=== PATIENT | male | born 1945 | race Caucasian/White ===

== ENCOUNTER 2023-11-08 11:54 | Inpatient (IN) | payer MEDICARE, OTHER, MEDICAID ==
[2023-11-08] MEDS ORDERED: Acetaminophen 325 MG Tab PO PRN (17:52)
[2023-11-08] MEDS ORDERED: Hydrocortisone 2.5% Crm 30 GM Tube TOP PRN (18:32)
[2023-11-08] MEDS ORDERED: Albuterol 0.083% 2.5 MG/3 ML Neb Soln INH PRN (18:32)
[2023-11-08] MEDS ORDERED: Nitroglycerin 0.4 MG Tab.SL SL SCH (18:45)
[2023-11-08] MEDS ORDERED: Glucagon,Human Recombinant 1 MG Vial IM PRN (18:46)
[2023-11-08] MEDS ORDERED: 50% Dextrose in Water 50 ML Syringe IVPUSH PRN (18:46)
[2023-11-08] MEDS: Insulin Lispro 100 Unit/ML 3 ML KwikPen SUBCUT SCH (19:01)
[2023-11-08] MEDS: Acetaminophen/HYDROcodone 325-5 MG Tab PO PRN (19:18)
[2023-11-08] MEDS: Gabapentin 100 MG Cap PO SCH (20:54)
[2023-11-08] MEDS: Furosemide 20 MG Tab PO SCH (20:54)
[2023-11-08] MEDS: Celecoxib 100 MG Cap PO SCH (20:54)
[2023-11-08] MEDS: Montelukast 10 MG Tab PO SCH (20:54)
[2023-11-08] MEDS: Rosuvastatin 10 MG Tab PO SCH (20:54)
[2023-11-08] MEDS: Apixaban 5 MG Tab PO SCH (20:54)
[2023-11-08] MEDS: NORTRIPTYLINE 25 MG PO SCH (20:55)
[2023-11-08] MEDS: Albuterol 8 GM Inhaler INH SCH (22:24)
[2023-11-09] MEDS ORDERED: Scopalamine 1mg/3day Transdermal Patch TRDERM PRN (00:02)
[2023-11-09] MEDS: Pantoprazole 40 MG Tab.CR PO SCH (06:30)
[2023-11-09] MEDS: Levothyroxine 50 MCG Tab PO SCH (06:30)
[2023-11-09] MEDS: Insulin Glargine,Hum.Rec.Anlog 100 UNIT/ML 3 ML Pen SUBCUT SCH (08:32)
[2023-11-09] MEDS: Docusate Sodium 100 MG Cap PO SCH (08:35)
[2023-11-09] MEDS: Finasteride 5 MG Tab PO SCH (08:35)
[2023-11-09] MEDS: ALFUZOSIN HCL 10 MG PO SCH (08:36)
[2023-11-09] MEDS: Ferrous Sulfate 325 MG Tab PO SCH (08:36)
[2023-11-09] MEDS: Aspirin 81 MG Tab.Chew PO SCH (08:36)
[2023-11-09] MEDS: Carvedilol 6.25 MG Tab PO SCH (08:40)
[2023-11-09] MEDS ORDERED: Non-Formulary Medication 1 Each (Fluticasone/Vilanterol [Breo Ellipta 50-25 Mcg Inhaler] 1 INH SCH (09:00)
[2023-11-09] MEDS: Furosemide 20 MG Tab PO SCH (09:44)
[2023-11-09] MEDS: DAPAGLIFLOZIN PROPANEDIOL 10 MG PO SCH (15:53)
[2023-11-09] MEDS: ECHINACEA 400 MG PO SCH (15:53)
[2023-11-09] MEDS: Formoterol/Mometasone 200-5 MCG 8.8 GM Inhaler IH SCH (20:53)
[2023-11-10 08:47] LABS: BASOPHILS ABSOLUTE AUTO 0.05 10^3/uL (0.00-0.10); BASOPHILS PERCENT AUTO 0.7 % (0.0-1.0); EOSINOPHILS ABSOLUTE AUTO 0.25 10^3/uL (0.10-0.30); EOSINOPHILS PERCENT AUTO 3.6 % (1.0-3.0); HEMATOCRIT 31.2 % (40.0-52.0); IMMATURE GRAN ABSOLUTE AUTO 0.02 10^3/uL (0.00-0.50); IMMATURE GRAN PERCENT AUTO 0.3 % (0.0-5.0); LYMPHOCYTES ABSOLUTE AUTO 1.32 10^3/uL (1.00-4.00); LYMPHOCYTES PERCENT AUTO 19.2 % (20.0-40.0); MEAN CORPUSCULAR HGB CONC 32.1 g/dL (32.0-36.0); MEAN CORPUSCULAR VOLUME 93.7 fL (82.0-92.0); MEAN PLATELET VOLUME 9.5 fL (7.4-10.4); MONOCYTES ABSOLUTE AUTO 0.54 10^3/uL (0.10-0.80); MONOCYTES PERCENT AUTO 7.9 % (2.0-8.0); NEUTROPHILS ABSOLUTE AUTO 4.69 10^3/uL (2.50-7.00); NEUTROPHILS PERCENT AUTO 68.3 % (50.0-70.0); PLATELET COUNT,PLT 373 10^3/uL (150-400); RED BLOOD CELL COUNT 3.33 10^6/uL (4.50-6.00); RED CELL DISTRIBUTION WIDTH 14.5 % (11.5-14.5); WHITE BLOOD CELL COUNT,WBC 6.87 10^3/uL (5.00-10.00)
[2023-11-10 09:03] LABS: ANION GAP 11.8 mmol/L (5-15); CALCIUM 8.3 mg/dL (8.7-10.3); CREATININE 0.7 mg/dL (0.51-1.17); EST CRCL DRUG DOSING (CG) 85.5 mL/min; MAGNESIUM 1.9 mg/dL (1.8-2.4); POTASSIUM,K 3.8 mmol/L (3.5-5.1)
[2023-11-10] MEDS: Fluconazole 100 MG Tab PO ONE (16:35)
[2023-11-10] MEDS: Nystatin Crm 15 GM Tube TOP SCH (16:35)
[2023-11-10] MEDS ORDERED: Bisacodyl 10 MG Supp RECTAL PRN (19:49)
[2023-11-10] MEDS: Ondansetron 4 MG Tab.DIS PO PRN (20:02)
[2023-11-10] MEDS: Magnesium Hydroxide 400 MG/5 ML Susp 30 ML Cup PO PRN (20:48)
[2023-11-11 06:38] LABS: APPEARANCE,URINE SLIGHTLY CLOUDY (CLEAR); BILIRUBIN,URINE NEGATIVE (NEGATIVE); COLOR,URINE LIGHT YELLOW (YELLOW); GLUCOSE,URINE >=1000 mg/dL (NEGATIVE); KETONES,URINE NEGATIVE (NEGATIVE); LEUKOCYTE ESTERASE,URINE SMALL (NEGATIVE); NITRITE,URINE NEGATIVE (NEGATIVE); OCCULT BLOOD,URINE SMALL (NEGATIVE); PROTEIN,URINE NEGATIVE (NEGATIVE); UROBILINOGEN,URINE 0.2 E.U./dL (0.2-1.0)
[2023-11-11 06:44] LABS: BACTERIA,URINE FEW /HPF (NONE TO FEW); EPITHELIAL CELLS,URINE FEW /LPF; RBC,URINE 0-5 /HPF (0-5)
[2023-11-11 07:28] LABS: ALBUMIN 2.39 g/dL (3.40-5.00); ANION GAP 13.4 mmol/L (5-15); BILIRUBIN TOTAL 0.5 mg/dL (0.2-1.0); CALCIUM 8.3 mg/dL (8.7-10.3); CARBON DIOXIDE,CO2 28.9 mmol/L (21.0-32.0); CREATININE 0.67 mg/dL (0.51-1.17); EST CRCL DRUG DOSING (CG) 89.33 mL/min; POTASSIUM,K 4.3 mmol/L (3.5-5.1); PROTEIN TOTAL,TP 5.4 g/dL (6.4-8.2)
[2023-11-11] MEDS: Bisacodyl 5 MG Tab PO PRN (08:18)
[2023-11-11] MEDS ORDERED: PENTOXIFYLLINE 400 MG PO SCH (10:15)
[2023-11-11] MEDS: Lactulose Soln 10 GM/15 ML 30 ML UD Cup PO PRN (12:11)
[2023-11-11] MEDS: PENTOXIFYLLINE 400 MG PO SCH (12:11)
[2023-11-12] MEDS: Loratadine 10 MG Tab PO PRN (03:05)
[2023-11-12] MEDS: Fluticasone NASAL Spray 16 GM Bottle NASBOTH PRN (16:42)
[2023-11-13 08:06] LABS: BASOPHILS ABSOLUTE AUTO 0.05 10^3/uL (0.00-0.10); BASOPHILS PERCENT AUTO 0.9 % (0.0-1.0); EOSINOPHILS ABSOLUTE AUTO 0.21 10^3/uL (0.10-0.30); EOSINOPHILS PERCENT AUTO 3.7 % (1.0-3.0); HEMATOCRIT 33.9 % (40.0-52.0); HEMOGLOBIN 10.9 g/dL (13.0-17.0); IMMATURE GRAN ABSOLUTE AUTO 0.02 10^3/uL (0.00-0.50); IMMATURE GRAN PERCENT AUTO 0.4 % (0.0-5.0); LYMPHOCYTES ABSOLUTE AUTO 1.33 10^3/uL (1.00-4.00); LYMPHOCYTES PERCENT AUTO 23.7 % (20.0-40.0); MEAN CORPUSCULAR HEMOGLOBIN 30.1 pg (27.0-31.0); MEAN CORPUSCULAR HGB CONC 32.2 g/dL (32.0-36.0); MEAN CORPUSCULAR VOLUME 93.6 fL (82.0-92.0); MEAN PLATELET VOLUME 9.5 fL (7.4-10.4); MONOCYTES ABSOLUTE AUTO 0.47 10^3/uL (0.10-0.80); MONOCYTES PERCENT AUTO 8.4 % (2.0-8.0); NEUTROPHILS ABSOLUTE AUTO 3.53 10^3/uL (2.50-7.00); NEUTROPHILS PERCENT AUTO 62.9 % (50.0-70.0); PLATELET COUNT,PLT 391 10^3/uL (150-400); RED BLOOD CELL COUNT 3.62 10^6/uL (4.50-6.00); RED CELL DISTRIBUTION WIDTH 14.9 % (11.5-14.5); WHITE BLOOD CELL COUNT,WBC 5.61 10^3/uL (5.00-10.00)
[2023-11-13 08:24] LABS: ANION GAP 12.6 mmol/L (5-15); CALCIUM 8.8 mg/dL (8.7-10.3); CARBON DIOXIDE,CO2 26.9 mmol/L (21.0-32.0); CREATININE 0.71 mg/dL (0.51-1.17); EST CRCL DRUG DOSING (CG) 84.3 mL/min; MAGNESIUM 2.5 mg/dL (1.8-2.4); POTASSIUM,K 4.5 mmol/L (3.5-5.1)
[2023-11-13] MEDS: Polyethylene Glycol 3350 Powder 17 GM Packet PO PRN (08:44)
[2023-11-13] MEDS: Nystatin Crm 15 GM Tube TOP SCH (22:07)
[2023-11-14 12:20] LABS: BASOPHILS ABSOLUTE AUTO 0.02 10^3/uL (0.00-0.10); BASOPHILS PERCENT AUTO 0.4 % (0.0-1.0); EOSINOPHILS ABSOLUTE AUTO 0.19 10^3/uL (0.10-0.30); EOSINOPHILS PERCENT AUTO 3.4 % (1.0-3.0); HEMATOCRIT 35.2 % (40.0-52.0); HEMOGLOBIN 11.2 g/dL (13.0-17.0); IMMATURE GRAN ABSOLUTE AUTO 0.02 10^3/uL (0.00-0.50); IMMATURE GRAN PERCENT AUTO 0.4 % (0.0-5.0); LYMPHOCYTES ABSOLUTE AUTO 0.98 10^3/uL (1.00-4.00); LYMPHOCYTES PERCENT AUTO 17.4 % (20.0-40.0); MEAN CORPUSCULAR HGB CONC 31.8 g/dL (32.0-36.0); MEAN CORPUSCULAR VOLUME 94.4 fL (82.0-92.0); MEAN PLATELET VOLUME 9.5 fL (7.4-10.4); MONOCYTES ABSOLUTE AUTO 0.56 10^3/uL (0.10-0.80); NEUTROPHILS ABSOLUTE AUTO 3.85 10^3/uL (2.50-7.00); NEUTROPHILS PERCENT AUTO 68.4 % (50.0-70.0); PLATELET COUNT,PLT 374 10^3/uL (150-400); RED BLOOD CELL COUNT 3.73 10^6/uL (4.50-6.00); WHITE BLOOD CELL COUNT,WBC 5.62 10^3/uL (5.00-10.00)
[2023-11-14 12:35] LABS: ALBUMIN 3.07 g/dL (3.40-5.00); ANION GAP 12.8 mmol/L (5-15); BILIRUBIN TOTAL 0.4 mg/dL (0.2-1.0); CALCIUM 8.9 mg/dL (8.7-10.3); CARBON DIOXIDE,CO2 26.7 mmol/L (21.0-32.0); CREATININE 0.73 mg/dL (0.51-1.17); EST CRCL DRUG DOSING (CG) 81.99 mL/min; MAGNESIUM 2.3 mg/dL (1.8-2.4); POTASSIUM,K 4.5 mmol/L (3.5-5.1); PROTEIN TOTAL,TP 6.5 g/dL (6.4-8.2)
[2023-11-14] MEDS ORDERED: 50% Dextrose in Water 50 ML Syringe IVPUSH PRN (13:41)
[2023-11-14] MEDS ORDERED: Glucagon,Human Recombinant 1 MG Vial IM PRN (13:41)
[2023-11-14] MEDS: Insulin Lispro 100 Unit/ML 3 ML KwikPen SUBCUT SCH (18:22)
[2023-11-14 22:16] LABS: HEMOGLOBIN A1C 7.8 % (4.3-5.7)
[2023-11-17] MEDS: Sennosides/Docusate Sodium 50-8.6 MG Tab PO SCH (13:00)
[2023-11-25] MEDS: DESOXIMETASONE 0.25% TOP PRN (22:30)
[2023-11-28 07:47] LABS: BASOPHILS ABSOLUTE AUTO 0.02 10^3/uL (0.00-0.10); BASOPHILS PERCENT AUTO 0.4 % (0.0-1.0); EOSINOPHILS PERCENT AUTO 1.8 % (1.0-3.0); HEMATOCRIT 35.9 % (40.0-52.0); HEMOGLOBIN 11.6 g/dL (13.0-17.0); IMMATURE GRAN ABSOLUTE AUTO 0.02 10^3/uL (0.00-0.50); IMMATURE GRAN PERCENT AUTO 0.4 % (0.0-5.0); LYMPHOCYTES ABSOLUTE AUTO 1.25 10^3/uL (1.00-4.00); LYMPHOCYTES PERCENT AUTO 22.6 % (20.0-40.0); MEAN CORPUSCULAR HEMOGLOBIN 30.2 pg (27.0-31.0); MEAN CORPUSCULAR HGB CONC 32.3 g/dL (32.0-36.0); MEAN CORPUSCULAR VOLUME 93.5 fL (82.0-92.0); MEAN PLATELET VOLUME 10.3 fL (7.4-10.4); MONOCYTES ABSOLUTE AUTO 0.52 10^3/uL (0.10-0.80); MONOCYTES PERCENT AUTO 9.4 % (2.0-8.0); NEUTROPHILS ABSOLUTE AUTO 3.63 10^3/uL (2.50-7.00); NEUTROPHILS PERCENT AUTO 65.4 % (50.0-70.0); PLATELET COUNT,PLT 240 10^3/uL (150-400); RED BLOOD CELL COUNT 3.84 10^6/uL (4.50-6.00); RED CELL DISTRIBUTION WIDTH 14.7 % (11.5-14.5); WHITE BLOOD CELL COUNT,WBC 5.54 10^3/uL (5.00-10.00)
[2023-11-28 08:03] LABS: ANION GAP 14.8 mmol/L (5-15); CALCIUM 8.7 mg/dL (8.7-10.3); CARBON DIOXIDE,CO2 24.2 mmol/L (21.0-32.0); CREATININE 0.61 mg/dL (0.51-1.17); EST CRCL DRUG DOSING (CG) 98.11 mL/min
[2023-12-03] MEDS: Nystatin Crm 15 GM Tube TOP SCH (20:54)
[2023-12-13] MEDS ORDERED: Lidocaine 5% 700 MG Patch TRDERM SCH (13:00)
[2023-12-13] MEDS: Furosemide 40 MG/4 ML VIAL IVPUSH ONE (13:22)
== END 2023-12-17 14:15 | disposition home or self-care (01) | DRG 948 ==
LOC: UNDOADMOB 16:51 → KA.MS 16:51 → UNDOADMOB 16:59 → MERGE 16:59 → KA.MS 16:59 → UNDOADMOB 17:52 → OBSVTOIN 17:52
PROVIDERS: ADMIT Internal Medicine; ATTEND Internal Medicine
DX: R53.81 Other malaise (principal); I10 Essential (primary) hypertension; E11.9 Type 2 diabetes mellitus without complications; I48.0 Paroxysmal atrial fibrillation; Z88.8 Allergy status to other drugs, medicaments and biological substances; Z79.4 Long term (current) use of insulin; Z79.01 Long term (current) use of anticoagulants; Z79.82 Long term (current) use of aspirin; Z79.899 Other long term (current) drug therapy; Z79.890 Hormone replacement therapy; Z96.642 Presence of left artificial hip joint
CPT/HCPCS: 36415; 74018; 80048; 80053; 81001; 81003; 82947; 83036; 83605; 83735; 85025; 87086; 87088; 97110-GO; 97110-GP; 97530-GP; 97535-GO; A9270-GY; J1815-GY; Q3014